=== PATIENT | female | born 1950 | race Caucasian/White ===

== ENCOUNTER 2024-11-02 05:13 | Day surgery (SDC) | payer MEDICARE, SELFPAY ==
[2024-11-01] VITALS (11 sets, daily range): BP systolic 117–176; BP diastolic 55–97; BMI 29.1
[2024-11-01 15:39] LABS: % Basophils 0.2 % (0-2); % Immature Granulocytes 0.5 % (0-0.5); % Lymphocytes 9.3 % (20.5-51.1); % Monocytes 2.1 % (1.7-9.3); % Neutrophils 87.9 % (42.2-75.2); Absolute Immature Granulocytes 0.1 10^3/uL (0-0.05); Absolute Monocytes 0.2 10^3/uL (0.1-0.6); Absolute Neutrophils 9.8 10^3/uL (1.4-6.5); Hematocrit 42.2 % (37.0-47.0); Hemoglobin 14.8 g/dL (12.0-16.0); Mean Corp Hgb Conc. 35.1 g/dL (33.0-37.0); Mean Corpuscular Volume 82.7 fL (81.0-99.0); Mean Platelet Volume 11.3 fL (7.4-10.4); Nucleated Red Blood Cells % 0 %; Platelet Count 378 10^3/uL (130-400); Red Cell Dist. Width 12.3 % (11.5-14.5); White Blood Cell Count 11.2 10^3/uL (4.8-10.8)
[2024-11-01 15:54] LABS: ALT (SGPT) 35 U/L (0-35); AST (SGOT) 26 U/L (14-36); Albumin 5.7 g/dl (3.5-5.0); Alkaline Phosphatase 110 U/L (38-126); Blood Urea Nitrogen 13 mg/dl (7-17); Calcium 10.3 mg/dl (8.4-10.2); Carbon Dioxide 16 mmol/L (22-30); Chloride 109 mmol/L (98-107); Glucose 173 mg/dl (70-99); Potassium 4.7 mmol/L (3.5-5.1); Sodium 141 mmol/L (135-145); Total Bilirubin 1.2 mg/dl (0.2-1.3); Total Protein 8.6 g/dl (6.3-8.2); eGFR > 60.00
[2024-11-01 15:55] LABS: Lipase 97 U/L (23-300)
--- NOTE | 2024-11-01 17:10 | ED.GENMED ---
History of Present Illness
<Mojgan Olivares NP - Last Filed: 11/04/24 16:15>
General
Chief Complaint: Abdominal Pain
Source: patient
Exam Limitations: none
Time Seen by Provider: 11/01/24 16:54
Nursing documentation reviewed up to this point in time: agreed with
History of Present Illness
History of Present Illness:
Patient to ED wt complaint of abdominal pain and vomiting. States pain started LLQ this AM and is now diffuse. Vomited approx 15times [employer]. Denies fever/chills. Brought to ED by daughter for eval.
Past History
<Mojgan Olivares NP - Last Filed: 11/04/24 16:15>
Past History
ED Past Medical History: NIDDM and Other (Arthritis, bilateral total knees, L5 herniated disc, bilateral carpal tunnel syndromes that have required injections but not release)
Social History
Tobacco: Former smoker
Alcohol: None
Family History
Family History: Negative Diabetes, Early CAD or CAD
Review of Systems
<Mojgan Olivares NP - Last Filed: 11/04/24 16:15>
Review of Systems
Allergies reviewed?: Yes
All Other Systems: ROS reviewed and negative except as documented in HPI and ROS
Constitutional: Reports no symptoms
EENT: Reports no symptoms
Respiratory: Reports no symptoms
Cardiac: Reports no symptoms
ABD/GI: Reports abdominal pain (Diffuse abd. pain)
: Reports no symptoms
Musculoskeletal: Reports no symptoms
Skin: Reports no symptoms
Neurological: Reports no symptoms
Psychiatric: Reports no symptoms
Phy Exam
<Mojgan Olivares NP - Last Filed: 11/04/24 16:15>
General Physical Exam
General Presentation: moderate distress
General age: appears stated age
General Skin: warm and dry
General Habitus: normal
General Mental: alert
Cardiovascular Exam
Cardiovascular Exam: regular rate/rhythm and no edema
Pulmonary Exam
Pulmonary Exam: lungs clear and no respiratory distress
Gastrointestinal Exam
Gastrointestinal Exam: normal bowel sounds, soft, no organomegaly, no pulsatile mass and non distended
Palpation: left upper quadrant: Mild tenderness, left lower quadrant: Moderate tenderness, right upper quadrant: Minimal tenderness and right lower quadrant: Mild tenderness
Musculoskeletal Exam
Musculoskeletal Exam: full ROM and neuro vasc intact
Skin Exam
Skin Exam: normal color, warm/dry and no rash
Psychiatric Exam
Psychiatric Exam: normal mood/affect
Course
<Mojgan Olivares NP - Last Filed: 11/04/24 16:15>
Orders/Labs/Results
Orders:
Orders
11/01/24 15:28
Complete Blood Count/With Diff Urgent
Comprehensive Metabolic Panel Urgent
Lipase Urgent
11/01/24 17:08
HYDROmorphone [Dilaudid] 0.5 mg IV NOW STA
Ondansetron Injectable [Zofran] 4 mg IV NOW STA
11/01/24 17:09
CT Abd/pelvis W Iv Cont Urgent
Comment:
Reason For Exam: abdominal pain, vomiting.
0.9% Sodium Chloride 1000 ml [Nss] 1,000 ml IV BOLUS
11/01/24 18:25
Urinalysis Reflex To Culture Urgent
Date Specimen was Collected: 11/01/24
Time Specimen was Collected: 17:12
11/01/24 19:31
Pelvis (Non Obstetric) US [US Pelvis Only (non-obstetric)] Urgent
Comment:
Reason For Exam: left ovarian mass
11/01/24 21:25
HYDROmorphone [Dilaudid] 0.5 mg .ROUTE .STK-MED ONE
HYDROmorphone [Dilaudid] 0.5 mg IV NOW STA
Ondansetron Injectable [Zofran] 4 mg .ROUTE .STK-MED ONE
Ondansetron Injectable [Zofran] 4 mg IV NOW STA
11/01/24 22:05
Type+Screen Urgent
11/02/24 00:12
Fentanyl Citrate/Pf [Sublimaze] 25 mcg IV PACU-Q5MPRN PRN
Fentanyl Citrate/Pf [Sublimaze] 50 mcg IV PACU-Q5MPRN PRN
Meperidine [Demerol] 12.5 mg IV PACU-Q5MPRN PRN
Ondansetron Injectable [Zofran] 4 mg IV PACU-ONCEPRN PRN
Prochlorperazine [Compazine] 5 mg IV PACU-ONCEPRN PRN
Notify MD As Directed
Notify physician if: for SDS patients with known or suspected sleep obstructive sleep apnea, monitor in the
PACU.
Notify MD for any apneic/desaturation episodes
O2 Therapy [RESP] Urgent
Titrate/Wean O2 to maintain O2 sat greater than (%): 92
Special Instructions: -Provide supplemental oxygen to achieve O2 sat of 92% or greater.
-After 15 min, may wean O2 and discontinue if patient is able to maintain O2 sat of 92%
or greater during recovery period.
If patient is a discharge home, without oxygen therapy, notify anestheiologist if
unable to maintain O2 SAT of 92% or greater on room air for MD clearance.
11/02/24 00:15
Normosol (Mult Electrolytes) [Normosol-R/Plasmalyte-A] 1,000 ml IV PER PROTOCOL
11/02/24 01:00
Flush (0.9% Sodium Chloride) [Flush (Nss)] See Dose Instructions IV PER PROTOCOL
11/02/24 01:11
HYDROmorphone [Dilaudid] 0.5 mg IV NOW STA
11/02/24 01:40
Lidocaine 2% Mpf [Xylocaine Mpf 2%] 100 mg .ROUTE .STK-MED ONE
Ondansetron Injectable [Zofran] 4 mg .ROUTE .STK-MED ONE
Propofol [Diprivan] 20 ml .ROUTE .STK-MED
Rocuronium [employer] [Rocuronium] 50 mg .ROUTE .STK-MED ONE
11/02/24 01:41
Fentanyl Citrate/Pf [Sublimaze] 100 mcg .ROUTE .STK-MED ONE
11/02/24 01:52
Oxytocin [Pitocin] 10 units .ROUTE .STK-MED ONE
11/02/24 01:53
Oxytocin [Pitocin] 10 units .ROUTE .STK-MED ONE
11/02/24 01:55
Phenylephrine HCl/0.9% NaCl [Trav-Synephrine] 1,000 mcg .ROUTE .STK-MED ONE
11/02/24 02:42
Midazolam HCl [Versed] 2 mg .ROUTE .STK-MED ONE
11/02/24 02:49
Bupivacaine 0.25%Pf/Epinephrin [Sensorcaine-Epi 0.25%-0.0005] 30 ml .ROUTE .STK-MED ONE
Bupivacaine Mpf 0.25% [Sensorcaine-Mpf 0.25% Vial] 30 ml .ROUTE .STK-MED ONE
11/02/24 03:25
Rocuronium [employer] [Rocuronium] 50 mg .ROUTE .STK-MED ONE
11/02/24 03:42
Sugammadex Sodium [Bridion] 200 mg .ROUTE .STK-MED ONE
11/02/24 03:47
OR Cytology Routine
Date Specimen was Collected: 11/02/24
Time Specimen was Collected: 03:51
Source: Pelvic Washings
Clinical Impression: ovarian cyst
11/02/24 03:48
HYDROmorphone [Dilaudid] 1 mg .ROUTE .STK-MED ONE
11/02/24 03:55
OR Pathology Routine
Clinical History: adnexal mass
Pre-Operative Diagnosis: adnexal mass
Post-Operative Diagnosis: adnexal mass
Operative Procedure: laproscopic removal of adnexal mass
Surgeon: mando
Circulating Nurse: rosa elena
Specimen Type: right ovarian cyst
:: right fallopian tube and ovary
11/02/24 04:19
OR Cytology Routine
Date Specimen was Collected: 11/02/24
Time Specimen was Collected: 04:19
Source: Ovarian Cyst Fluid, Right
Clinical Impression: cyst
11/02/24 05:33
Admit/Transfer Patient As Directed
Co-Sign Provider:
Level of Care: Post Proc/Surg Recovery
Assign to:: Medical/Surgical
Physician / Group: Loco
Transfer to: Medical/Surgical
Diagnosis: s/p laparoscopic BSO
Patient Condition: Good
Reason for Hospitalization: left ovarian torsion
Expected length of stay greater than two midnights?: No
ELOS- Estimated Length of Stay in days: 1
I certify the patient meets the requirements for IP care: Yes
Reason for Overnight Stay: Bleeding/Bleeding Risk
PRN Pain Medication Management As Directed
May give lesser potent ordered pain med per pt: Yes
preference::
Protocol:: Medication orders for pain may be administered in a
manner that supports deferring to patient preference
when the pt is:
- Requesting an ordered lesser potent pain medication.
Least to most potent pain medications are defined
as: acetaminophen < NSAID < tramadol < opioids
(morphine, oxycodone, hydromorphone).
- Requesting a lesser dose of the same medication IF
ORDERED.
- Requesting a less intrusive route of administration
if both routes are prescribed by the provider (PO <
IV).
11/02/24 05:39
Acetaminophen [Tylenol] 650 mg PO Q4HPRN PRN
Morphine Sulfate 2 mg IV Q3HPRN PRN
Ondansetron Injectable [Zofran] 4 mg IV Q6HPRN PRN
Oxycodone [Roxicodone] 2.5 mg PO Q4HPRN PRN
Oxycodone [Roxicodone] 5 mg PO Q4HPRN PRN
Sennosides [Senokot] 8.6 mg PO BIDPRN PRN
Simethicone [Mylicon] 80 mg PO Q6HPRN PRN
11/02/24 05:39
Admit Patient As Directed
Co-Sign Provider:
Level of Care: Post Proc/Surg Recovery
Assign to:: Medical/Surgical
Physician / Group: Loco
Diagnosis: s/p dx laparoscopiy, BSO
Patient Condition: Good
Reason for Hospitalization: left ovarian torsion, large adnexal cyst
Expected length of stay greater than two midnights?: No
ELOS- Estimated Length of Stay in days: 1
I certify the patient meets the requirements for IP care: Yes
Reason for Overnight Stay: Bleeding/Bleeding Risk
Diagnosis: post-operative hysterectomy
Activity As Directed
Activity Level: Out of Bed-Early Mobility
Advance Diet as Tolerated As Directed
Goal Diet: Regular
Anti-embolism (BOZENA) Hose As Directed
Type: Thigh high
INT (Intravenous Needle Therapy) As Directed
Intake/ Output As Directed
Frequency: Per unit guidelines
Call for Urine Output less than: 30 mL over 1 hour
Comment: Strict Intake and Output
Notify MD As Directed
Notify physician if: Call doctor for temperature >100.4 F, systolic blood pressure > 150 or < 90, urine output
less than 30 mL over 1 hour, Pulse > 100 or < 50
Observe for Vaginal Bleeding As Directed
Pneumatic Compression Sleeves As Directed
Type: Thigh high
Vital Signs As Directed
Frequency: Post-operative guidelines
Call for:: temp > 100.4 F, SBP > 150 or < 90, Pulse > 100 or < 50
Rx Incentive Spirometry [RESP] Routine
Frequency: q1h while awake
DX Deep Vein Thrombosis Video Routine
11/02/24 05:42
Ketorolac [Toradol] 15 mg .ROUTE .STK-MED ONE
11/02/24 Breakfast
Clear Liquid
At Your Request: Full Participation
Ketorolac [Toradol] 15 mg IV Q6H
11/02/24 07:47
Comprehensive Metabolic Panel Routine
Abnormal Lab Results
11/01/24 11/01/24
15:28 18:25
WBC 11.2 H 10^3/uL
(4.8-10.8)
MPV 11.3 H fL
(7.4-10.4)
Abs Immat Gran (auto) 0.1 H 10^3/uL
(0-0.05)
Absolute Neuts (auto) 9.8 H 10^3/uL
(1.4-6.5)
Absolute Lymphs (auto) 1.0 L 10^3/uL
(1.2-3.4)
Neutrophils % 87.9 H %
(42.2-75.2)
Lymphocytes % 9.3 L %
(20.5-51.1)
Chloride 109 H mmol/L
(98-107)
Carbon Dioxide 16 L mmol/L
(22-30)
Glucose 173 H mg/dl
(70-99)
Calcium 10.3 H mg/dl
(8.4-10.2)
Total Protein 8.6 H g/dl
(6.3-8.2)
Albumin 5.7 H g/dl
(3.5-5.0)
Urine Ketones 3+ A
(Negative)
11/01/24 15:28
11/01/24 15:28
Vital Signs
Initial and Last Documented VS:
Initial Vital Signs
Pulse Resp BP Pulse Ox
62 20 176/93 98
11/01/24 15:15 11/01/24 15:15 11/01/24 15:15 11/01/24 15:15
Last Documented Vital Signs
Temp Pulse Resp BP Pulse Ox
98.5 F 82 16 120/62 98
11/02/24 10:50 11/02/24 10:50 11/02/24 10:50 11/02/24 10:50 11/02/24 10:50
<Rambo Baldwin MD - Last Filed: 11/01/24 21:49>
Orders/Labs/Results
Orders:
Orders
11/01/24 15:28
Complete Blood Count/With Diff Urgent
Comprehensive Metabolic Panel Urgent
Lipase Urgent
11/01/24 17:08
HYDROmorphone [Dilaudid] 0.5 mg IV NOW STA
Ondansetron Injectable [Zofran] 4 mg IV NOW STA
11/01/24 17:09
CT Abd/pelvis W Iv Cont Urgent
Comment:
Reason For Exam: abdominal pain, vomiting.
0.9% Sodium Chloride 1000 ml [Nss] 1,000 ml IV BOLUS
11/01/24 18:25
Urinalysis Reflex To Culture Urgent
Date Specimen was Collected: 11/01/24
Time Specimen was Collected: 17:12
11/01/24 19:31
Pelvis (Non Obstetric) US [US Pelvis Only (non-obstetric)] Urgent
Comment:
Reason For Exam: left ovarian mass
11/01/24 21:25
HYDROmorphone [Dilaudid] 0.5 mg .ROUTE .STK-MED ONE
HYDROmorphone [Dilaudid] 0.5 mg IV NOW STA
Ondansetron Injectable [Zofran] 4 mg .ROUTE .STK-MED ONE
Ondansetron Injectable [Zofran] 4 mg IV NOW STA
11/01/24 22:05
Type+Screen Urgent
11/02/24 00:12
Fentanyl Citrate/Pf [Sublimaze] 25 mcg IV PACU-Q5MPRN PRN
Fentanyl Citrate/Pf [Sublimaze] 50 mcg IV PACU-Q5MPRN PRN
Meperidine [Demerol] 12.5 mg IV PACU-Q5MPRN PRN
Ondansetron Injectable [Zofran] 4 mg IV PACU-ONCEPRN PRN
Prochlorperazine [Compazine] 5 mg IV PACU-ONCEPRN PRN
Notify MD As Directed
Notify physician if: for SDS patients with known or suspected sleep obstructive sleep apnea, monitor in the
PACU.
Notify MD for any apneic/desaturation episodes
O2 Therapy [RESP] Urgent
Titrate/Wean O2 to maintain O2 sat greater than (%): 92
Special Instructions: -Provide supplemental oxygen to achieve O2 sat of 92% or greater.
-After 15 min, may wean O2 and discontinue if patient is able to maintain O2 sat of 92%
or greater during recovery period.
If patient is a discharge home, without oxygen therapy, notify anestheiologist if
unable to maintain O2 SAT of 92% or greater on room air for MD clearance.
11/02/24 00:15
Normosol (Mult Electrolytes) [Normosol-R/Plasmalyte-A] 1,000 ml IV PER PROTOCOL
11/02/24 01:00
Flush (0.9% Sodium Chloride) [Flush (Nss)] See Dose Instructions IV PER PROTOCOL
11/02/24 01:11
HYDROmorphone [Dilaudid] 0.5 mg IV NOW STA
11/02/24 01:40
Lidocaine 2% Mpf [Xylocaine Mpf 2%] 100 mg .ROUTE .STK-MED ONE
Ondansetron Injectable [Zofran] 4 mg .ROUTE .STK-MED ONE
Propofol [Diprivan] 20 ml .ROUTE .STK-MED
Rocuronium [employer] [Rocuronium] 50 mg .ROUTE .STK-MED ONE
11/02/24 01:41
Fentanyl Citrate/Pf [Sublimaze] 100 mcg .ROUTE .STK-MED ONE
11/02/24 01:52
Oxytocin [Pitocin] 10 units .ROUTE .STK-MED ONE
11/02/24 01:53
Oxytocin [Pitocin] 10 units .ROUTE .STK-MED ONE
11/02/24 01:55
Phenylephrine HCl/0.9% NaCl [Trav-Synephrine] 1,000 mcg .ROUTE .STK-MED ONE
11/02/24 02:42
Midazolam HCl [Versed] 2 mg .ROUTE .STK-MED ONE
11/02/24 02:49
Bupivacaine 0.25%Pf/Epinephrin [Sensorcaine-Epi 0.25%-0.0005] 30 ml .ROUTE .STK-MED ONE
Bupivacaine Mpf 0.25% [Sensorcaine-Mpf 0.25% Vial] 30 ml .ROUTE .STK-MED ONE
11/02/24 03:25
Rocuronium [employer] [Rocuronium] 50 mg .ROUTE .STK-MED ONE
11/02/24 03:42
Sugammadex Sodium [Bridion] 200 mg .ROUTE .STK-MED ONE
11/02/24 03:47
OR Cytology Routine
Date Specimen was Collected: 11/02/24
Time Specimen was Collected: 03:51
Source: Pelvic Washings
Clinical Impression: ovarian cyst
11/02/24 03:48
HYDROmorphone [Dilaudid] 1 mg .ROUTE .STK-MED ONE
11/02/24 03:55
OR Pathology Routine
Clinical History: adnexal mass
Pre-Operative Diagnosis: adnexal mass
Post-Operative Diagnosis: adnexal mass
Operative Procedure: laproscopic removal of adnexal mass
Surgeon: mando
Circulating Nurse: rosa elena
Specimen Type: right ovarian cyst
:: right fallopian tube and ovary
11/02/24 04:19
OR Cytology Routine
Date Specimen was Collected: 11/02/24
Time Specimen was Collected: 04:19
Source: Ovarian Cyst Fluid, Right
Clinical Impression: cyst
11/02/24 05:33
Admit/Transfer Patient As Directed
Co-Sign Provider:
Level of Care: Post Proc/Surg Recovery
Assign to:: Medical/Surgical
Physician / Group: Loco
Transfer to: Medical/Surgical
Diagnosis: s/p laparoscopic BSO
Patient Condition: Good
Reason for Hospitalization: left ovarian torsion
Expected length of stay greater than two midnights?: No
ELOS- Estimated Length of Stay in days: 1
I certify the patient meets the requirements for IP care: Yes
Reason for Overnight Stay: Bleeding/Bleeding Risk
PRN Pain Medication Management As Directed
May give lesser potent ordered pain med per pt: Yes
preference::
Protocol:: Medication orders for pain may be administered in a
manner that supports deferring to patient preference
when the pt is:
- Requesting an ordered lesser potent pain medication.
Least to most potent pain medications are defined
as: acetaminophen < NSAID < tramadol < opioids
(morphine, oxycodone, hydromorphone).
- Requesting a lesser dose of the same medication IF
ORDERED.
- Requesting a less intrusive route of administration
if both routes are prescribed by the provider (PO <
IV).
11/02/24 05:39
Acetaminophen [Tylenol] 650 mg PO Q4HPRN PRN
Morphine Sulfate 2 mg IV Q3HPRN PRN
Ondansetron Injectable [Zofran] 4 mg IV Q6HPRN PRN
Oxycodone [Roxicodone] 2.5 mg PO Q4HPRN PRN
Oxycodone [Roxicodone] 5 mg PO Q4HPRN PRN
Sennosides [Senokot] 8.6 mg PO BIDPRN PRN
Simethicone [Mylicon] 80 mg PO Q6HPRN PRN
11/02/24 05:39
Admit Patient As Directed
Co-Sign Provider:
Level of Care: Post Proc/Surg Recovery
Assign to:: Medical/Surgical
Physician / Group: Loco
Diagnosis: s/p dx laparoscopiy, BSO
Patient Condition: Good
Reason for Hospitalization: left ovarian torsion, large adnexal cyst
Expected length of stay greater than two midnights?: No
ELOS- Estimated Length of Stay in days: 1
I certify the patient meets the requirements for IP care: Yes
Reason for Overnight Stay: Bleeding/Bleeding Risk
Diagnosis: post-operative hysterectomy
Activity As Directed
Activity Level: Out of Bed-Early Mobility
Advance Diet as Tolerated As Directed
Goal Diet: Regular
Anti-embolism (BOZENA) Hose As Directed
Type: Thigh high
INT (Intravenous Needle Therapy) As Directed
Intake/ Output As Directed
Frequency: Per unit guidelines
Call for Urine Output less than: 30 mL over 1 hour
Comment: Strict Intake and Output
Notify MD As Directed
Notify physician if: Call doctor for temperature >100.4 F, systolic blood pressure > 150 or < 90, urine output
less than 30 mL over 1 hour, Pulse > 100 or < 50
Observe for Vaginal Bleeding As Directed
Pneumatic Compression Sleeves As Directed
Type: Thigh high
Vital Signs As Directed
Frequency: Post-operative guidelines
Call for:: temp > 100.4 F, SBP > 150 or < 90, Pulse > 100 or < 50
Rx Incentive Spirometry [RESP] Routine
Frequency: q1h while awake
DX Deep Vein Thrombosis Video Routine
11/02/24 05:42
Ketorolac [Toradol] 15 mg .ROUTE .STK-MED ONE
11/02/24 Breakfast
Clear Liquid
At Your Request: Full Participation
Ketorolac [Toradol] 15 mg IV Q6H
11/02/24 07:47
Comprehensive Metabolic Panel Routine
Abnormal Lab Results
11/01/24 11/01/24
15:28 18:25
WBC 11.2 H 10^3/uL
(4.8-10.8)
MPV 11.3 H fL
(7.4-10.4)
Abs Immat Gran (auto) 0.1 H 10^3/uL
(0-0.05)
Absolute Neuts (auto) 9.8 H 10^3/uL
(1.4-6.5)
Absolute Lymphs (auto) 1.0 L 10^3/uL
(1.2-3.4)
Neutrophils % 87.9 H %
(42.2-75.2)
Lymphocytes % 9.3 L %
(20.5-51.1)
Chloride 109 H mmol/L
(98-107)
Carbon Dioxide 16 L mmol/L
(22-30)
Glucose 173 H mg/dl
(70-99)
Calcium 10.3 H mg/dl
(8.4-10.2)
Total Protein 8.6 H g/dl
(6.3-8.2)
Albumin 5.7 H g/dl
(3.5-5.0)
Urine Ketones 3+ A
(Negative)
11/01/24 15:28
11/01/24 15:28
Vital Signs
Initial and Last Documented VS:
Initial Vital Signs
Pulse Resp BP Pulse Ox
62 20 176/93 98
11/01/24 15:15 11/01/24 15:15 11/01/24 15:15 11/01/24 15:15
Last Documented Vital Signs
Temp Pulse Resp BP Pulse Ox
98.5 F 82 16 120/62 98
11/02/24 10:50 11/02/24 10:50 11/02/24 10:50 11/02/24 10:50 11/02/24 10:50
<Mojgan Olivares NP - Last Filed: 11/04/24 16:15>
*Radiology
Radiology exam reviewed: radiology read reviewed
*Pulse Oximetry
Patient hypoxic: no
*Critical Care Note
Total Time (30-74mins, 75-104mins- exclusive of procedures): Not Applicable
<Mojgan Olivares NP - Last Filed: 11/04/24 16:15>
Update Note
Update Note:
Patient to ED wtih LLQ abdominal pain that started suddenly this AM. Associated with n/v. Pain now radiating to left side of abdomen. CT of abdomen shows large mass likely arising from left ovary. US confirms mass. Case discussed with
Roderick and Dr. Blue. COncern is for ovarian torsion. Dr. Vaughn will be into see patient, likely OR tonight.
Dr. Adan in to see patient. For OR tonight.
ED Attending Note
<Mojgan Olivares NP - Last Filed: 11/04/24 16:15>
-
Portions of this chart may have been created with voice recognition software.� Occasional wrong word or��sound alike� substitutions may have occurred due to the inherent limitations of voice recognition software.
<Rambo Baldwin MD - Last Filed: 11/01/24 21:49>
ED Attending Note
Patient seen and examined by attending physician: Yes
I performed the substantive portion of visit, reviewed & personally made and approve the management plan that is documented in note by myself or JACOBO.: Yes
ED Attending Note:
74-year-old female with intermittent abdominal discomfort mostly left-sided with intermittent nausea vomiting over a month. Has waxed and waned. However this morning became severe. Severe throughout the day. No fever some nausea some vomiting.
On exam patient is borderline tachycardic. She is warm and dry and perfusing well. She is in no respiratory distress. She does appear moderately uncomfortable however. She has tenderness to the left lower quadrant mild left upper quadrant and
mild epigastric tenderness. No rebound or guarding.
She has a large mass appearing to come from her left ovary by CT and by ultrasound. Mass versus torsion versus mass plus torsion. Awaiting SOLUTION CONSULTANT to evaluate the patient.
Discharge Plan
Departure
Patient Disposition: OR
Date of Disposition: 11/01/24
Time of Disposition: 23:52
Presentation/result/management discussed w/ accepting MD/DO: Dr adan
Condition: Fair
Covid-19: Not Applicable
Discharge Problem:
Mass, ovarian
Interventions
Interventions:
*Risk Screen - Suicide Last Done: 11/02/24 06:36
*General Assessment Last Done: 11/01/24 16:55
*Neglect/Abuse Screening Last Done: 11/01/24 16:55
*ED- Fall Risk Assessment Last Done: 11/01/24 16:55
*ED COVID-19 Vaccine History Last Done: 11/02/24 06:36
*Nursing Disposition Last Done: 11/02/24 02:09
NG-Jitrye-Nwaqugjgkn Assessment Last Done: 11/01/24 16:55
Discharge Date and Time
Discharge Date/Time: 11/02/24 02:09
[2024-11-01] MEDS: NSS 1000 IV (17:16)
[2024-11-01] MEDS: DILAUDID 0.5 MG IV ×2 (17:17→21:27)
[2024-11-01] MEDS: ZOFRAN 4 MG IV ×2 (17:18→21:27)
[2024-11-01 18:30] LABS: Urine Albumin Negative (Neg - Trace); Urine Bilirubin Negative (Negative); Urine Character Clear (Clear); Urine Glucose Negative (Negative); Urine Ketone 3+ (Negative); Urine Leukocyte Negative (Negative); Urine Nitrite Negative (Negative); Urine Occult Blood Negative (Negative); Urine Urobilinogen Negative (Neg - 1+)
[2024-11-01 18:31] LABS: Urine Color Straw
[2024-11-02] VITALS (11 sets, daily range): BP systolic 108–173; BP diastolic 57–86
[2024-11-02] MEDS: DILAUDID 0.5 MG IV (01:11)
[2024-11-02] MEDS: TORADOL 15 MG IV ×2 (05:45→11:22)
[2024-11-02 08:57] LABS: Blood Urea Nitrogen 9 mg/dl (7-17); Carbon Dioxide 22 mmol/L (22-30); Chloride 110 mmol/L (98-107); Estimated Creatinine Clearance 87 ml/min; Sodium 142 mmol/L (135-145)
--- NOTE | 2024-11-02 11:21 | CM ---
Addendum entered by Gopi Acuna 11/02/24 15:33:
Discharge order noted.
Both pt and her are aware, expressed their agreement. IMM reviewed, placed on chart, pt has a copy.
No after care VN services indicated.
D/C plan: home no needs. to transport.
Original Note:
CM following re: discharge planning.
Reviewed pt's chart, met with pt and pt's Ravin at bedside.
Pt is a 74 year old female, admitted with primary dx of Abdominal pain, went to OR early this morning.
Pt reports she lives with 2SH, 1 step to enter, has 2 supportive children. pt described herself as independent in all areas [employer]. No DME, VN or SNF history. Pt expressed her desire to return back home at discharge.
PCP: Kaylene Fuentes
Pharmacy: [facility].
D/C plan: home with anticipated no needs. to transport at discharge.
CM will follow with discharge plan updates as hospitalization progresses
[2024-11-02 12:02] LABS: % Basophils 0.1 % (0-2); % Immature Granulocytes 0.4 % (0-0.5); % Lymphocytes 4.5 % (20.5-51.1); % Monocytes 1.7 % (1.7-9.3); % Neutrophils 93.3 % (42.2-75.2); Absolute Immature Granulocytes 0.1 10^3/uL (0-0.05); Absolute Lymphocytes 0.8 10^3/uL (1.2-3.4); Absolute Monocytes 0.3 10^3/uL (0.1-0.6); Absolute Neutrophils 15.9 10^3/uL (1.4-6.5); Hematocrit 36.7 % (37.0-47.0); Hemoglobin 12.4 g/dL (12.0-16.0); Mean Corp Hgb Conc. 33.8 g/dL (33.0-37.0); Mean Corpuscular Hgb 29.2 pg (27.0-31.0); Mean Corpuscular Volume 86.4 fL (81.0-99.0); Mean Platelet Volume 12.3 fL (7.4-10.4); Nucleated Red Blood Cells % 0 %; Platelet Count 307 10^3/uL (130-400); Red Blood Cell Count 4.25 10^6/uL (4.20-5.40); Red Cell Dist. Width 12.5 % (11.5-14.5); White Blood Cell Count 17.1 10^3/uL (4.8-10.8)
[2024-11-02 12:14] LABS: ALT (SGPT) 25 U/L (0-35); AST (SGOT) 18 U/L (14-36); Albumin 4.3 g/dl (3.5-5.0); Alkaline Phosphatase 72 U/L (38-126); Calcium 8.8 mg/dl (8.4-10.2); Glucose 134 mg/dl (70-99); Total Bilirubin 0.7 mg/dl (0.2-1.3); Total Protein 6.7 g/dl (6.3-8.2)
[2024-11-02 13:05] LABS: CA 125 < 5.5 U/mL (0-35)
--- NOTE | 2024-11-02 14:36 | W.PN.OBG.DWH ---
Today's Communication / Plan
-
d/c to home today
Assessment/Plan
-
A/P: Postop S/P Dx laparoscopy and BSO for torsion of large left ovarian cyst.
Labs back now (were pending earlier)
Sent CA 125
Reviewed operative findings. Discussed that right ascending colon felt firm ? possible stool. No evidence of mass. Reviewed finding with patient.
Last colonoscopy was 2017. Strongly recommended to schedule a colonoscopy as soon as possible after 4 wks recovery for evaluation. She takes Mounjaro and it is possible she has stool backed up in colon. Moderate stool noted on CT. I had Dr. Pineda
look at CT and he confirmed no evidence of mass and no obstruction. I gave Flory name and contact information for colorectal specialists for colonoscopy and appt. Explained it would be important to rule out colon mass/cancer, backed up stool.
Recommend office visit in 2wks for follow up incision check and to discuss pathology.
Reviewed postop restrictions and instructions.
Time spent counseling, documentation , coordination of care 40min
Subjective Data
-
Postop check. Pt seen this am.
Feeling well, no complaints.
Pain is tolerable.
Dusty diet
Objective Data
-
Laboratory Results
11/02/24 07:47
11/02/24 11:26
Vital Signs
Temp Pulse Resp BP Pulse Ox
98.5 F 82 16 120/62 98
11/02/24 10:50 11/02/24 10:50 11/02/24 10:50 11/02/24 10:50 11/02/24 10:50
VSS afeb
Cor reg
Pulm: clear
Abd: soft, +bs NDNT Incision dressings dry
ext: no calf pain
--- NOTE | 2024-11-02 14:55 | W.DS.TRANS ---
DC Summary - Dining Room Hostess
-
Discharge Instructions:
Discharge Diagnosis/Procedures Left ovarian torsion, left ovarian cystic mass.
Diagnostic then operative laparoscopy bilateral
salpingo-oopherectomy for ovarian mass with
torsion.
Diet Regular
Activity No strenuous activity
Driving Restrictions no driving while on narcotic pain medicaitons
Bathing Restrictions OK to Shower
Instructions:
Stand-Alone Forms:
Changes to Home Medications: No
Discharge Medications:
DC Medications w/original date entered in [facility]
acetaminophen 325 mg tablet 650 mg (2 x 325 mg) PO Q4HPRN PRN mild pain #0 tabs 11/02/24
oxycodone 5 mg tablet 2.5 mg (1/2 x 5 mg) PO Q4HPRN PRN moderate pain #0 tabs 11/02/24
oxycodone 5 mg tablet 5 mg PO Q4HPRN PRN severe pain when tolerating PO #12 tabs 11/02/24
Home Medication Changes
Pending Results: Yes
Additional Pending Results:
surgical pathology
Total time spent discharging patient (in min): 40
--- NOTE | 2024-11-02 20:10 | W.IMMPOSTOP ---
Surgical Immed Post Op Note
-
Primary Surgeon: Lyndsey Adan DO
Assisting Surgeon: Leydi Vaughn DO
Pre-op Diagnosis: Acute abdominal pain, pelvic mass, possible ovarian torsion
Post-op Diagnosis: Acute abdominal pain, left ovarian cystic mass, left ovarian torsion
Procedure Performed: Diagnostic laparoscopy, bilateral salpingo-oopherectomy, pelvic washings
Anesthesia Type: general ET Dr. Damon
Specimen / Cultures: 1. pelvic washings 2. left tube and ovary containing cyst; right tube and ovary
Estimated Blood Loss: 5ml.
Urine output: 400ml Clear yellow urine.
Complications: none
Operative Findings: Large left ovarian cystic mass, approximately 14 cm with torsion (3 rotations on pedicle). Normal appearing right tube and ovary. Normal appearing uterus. Normal appearing liver. Filmy adhesions of sigmoid colon to pelvic
peritoneum on left side pelvic wall near left infundibulopelvic ligament.
Ascending colon with firm consistency, questionable hard stool. Stenotic cervical os.
Counts correct times 2.
== END 2024-11-02 16:00 | disposition home or self-care (01) ==
LOC: PACU 05:13
PROVIDERS: Emergency Medicine; Nurse Practitioner; ATTENDING PHYSICIAN Obstetrics & Gynecology; EMERGENCY PHYSICIAN Emergency Medicine; FAMILY PHYSICIAN Internal Medicine
DX: D27.1 Benign neoplasm of left ovary (principal); N83.512 Torsion of left ovary and ovarian pedicle; N83.201 Unspecified ovarian cyst, right side
CPT/HCPCS: 58661; 88305; 74177; 76856; 80053; 81003; 83690; 85025; 86304; 86850; 86900; 86901; 88112; 96361; 96374; 96375; 96376; 99285; C1776; Q9967

== ENCOUNTER 2025-01-16 06:15 | Day surgery (SDC) | payer MEDICARE, OTHER, SELFPAY ==
[2025-01-16 07:29] LABS: Glucose - Point of Care 98 mg/dl (70-99)
== END 2025-01-16 09:41 | disposition home or self-care (01) ==
LOC: GI 06:15
PROVIDERS: ATTENDING PHYSICIAN Surgery
DX: Z12.11 Encounter for screening for malignant neoplasm of colon (principal); K57.30 Diverticulosis of large intestine without perforation or abscess without bleeding; K64.8 Other hemorrhoids; R19.4 Change in bowel habit
CPT/HCPCS: G0121; 82962